=== PATIENT | female | born 2000 | race Caucasian/White ===

== ENCOUNTER 2019-01-12 10:59 | Emergency (ER) | payer SELFPAY ==
[2019-01-12] MEDS ORDERED: Dexamethasone 10 MG/ML VIAL ONE (13:25)
[2019-01-12] MEDS ORDERED: traMADol HCl 50 MG TAB ONE (13:25)
== END 2019-01-12 14:15 | disposition home or self-care (01) ==
LOC: ERS 10:59
DX: I88.9 Nonspecific lymphadenitis, unspecified (principal); K02.9 Dental caries, unspecified; K03.81 Cracked tooth; F31.9 Bipolar disorder, unspecified; F17.210 Nicotine dependence, cigarettes, uncomplicated
CPT/HCPCS: 87081; 87430; 99283; J1100

== ENCOUNTER 2020-07-16 14:29 | Emergency (ER) | payer OTHER, SELFPAY ==
[~2020-07-16 14:29] MED LIST: Iopamidol-370 76% 500 ML 1 ML ONE
[2020-07-16] MEDS ORDERED: Ampicillin/Sulbactam 1.5 GM in Sodium Chloride 0.9% 100 ML IVPB SCH (15:45)
[2020-07-16 16:25] LABS: #Eosinphils 0.3 thou/uL (0.0-0.7); #Lymphocytes 1.7 thou/uL (1.20-3.40); #Monocytes 0.7 thou/uL (0.11-0.59); #Neutrophils 10.5 thou/uL (1.40-6.50); %Basophils 0.3 % (0.0-1.0); %Eosinophils 2.5 % (0.0-10.0); %Lymphocytes 12.8 % (21.0-51.0); %Monocytes 5.2 % (0.0-10.0); %Neutrophils 79.3 % (42.0-75.0); Mean Corpuscular HGB CONC 33.2 g/dL (32.0-36.0); Mean Corpuscular Hemoglobin 32.1 pg (27.0-31.0); Mean Corpuscular Volume 96.7 fL (78.0-98.0); Mean Platelet Volume 9.2 fL (7.4-10.4); Platelet Count 183 thou/uL (130-400); RBC Distribution Width 12.1 % (11.5-14.5); Red Blood Cell (RBC) Count 4.37 mill/uL (4.20-5.40); White Blood Cell (WBC) Count 13.2 thou/uL (4.8-10.8)
[2020-07-16 16:41] LABS: BHCG - Serum Negative (NEGATIVE); Pregs Control Background? CLEAR/WHITE (CLR/WHITE); Pregs Control Bar Appear? YES (CONTROL BAR)
[2020-07-16 16:46] LABS: Anion Gap 16 mmol/L (10-20); BUN (Urea Nitrogen) 8 mg/dL (7.0-18.7); Calc. Creatinine Clearance 0 mL/min (70-130); Calcium 9.9 mg/dL (7.8-10.44); Carbon Dioxide 24 mmol/L (22-29); Chloride 98 mmol/L (98-107); Glucose 98 mg/dL (70-105); Potassium 3.4 mmol/L (3.5-5.1); Sodium 135 mmol/L (136-145)
--- NOTE | 2020-07-16 17:41 | CT ---
CT face with IV contrast HISTORY: Pain and swelling. FINDINGS: Within the deep subcutaneous tissues of the right lower cheek, superficial to the right man dibular body, there is a large area of ill-defined inflammatory stranding. A thin linear pocket of fluid measures up to 2.5 cm length by 0.8 cm depth by 1.1 cm width. While there is significant metall ic spray artifact from dental hardware, no aggressive osseous destruction is apparent. No other focal areas of inflammation. Reactive appearing lymph nodes along each jugular chain. Salivary glands and globes within normal limits. Prominent mucosal thickening within the left sphenoi d sinus and ethmoid air cells. Less prominent mucosal thickening in the left frontal sinus and maxillary sinus. IMPRESSION : Subcutaneous inflammation and deep abscess overlying the right mandibular body. No underlying osseous destruction evident. Left paranasal sinusitis.
[2020-07-16] MEDS ORDERED: Lidocaine 1% (PF) 30 ML VIAL ONE (19:22)
[2020-07-16] MEDS ORDERED: Bupivacaine 0.5% 10 ML VIAL ONE (19:22)
== END 2020-07-16 20:45 | disposition home or self-care (01) ==
LOC: ERS 14:29
DX: M27.2 Inflammatory conditions of jaws (principal); J45.909 Unspecified asthma, uncomplicated; F17.210 Nicotine dependence, cigarettes, uncomplicated
CPT/HCPCS: 36415; 41800; 70487; 80048; 83605; 84703; 85025; 87040; 96365; J0295; J2001; J3490; Q9967